=== PATIENT | female | born 1925 | race Caucasian/White ===

== ENCOUNTER 2017-02-19 17:31 | Inpatient (IN) | payer MEDICARE ==
--- NOTE | ~2017-02-19 | CN ---
Consultation Report [facility] [address] [place]. [address] NAME: KRISTIE BROOKS : [birth year] STATUS : ADM IN PAT#: [id number] AGE: 89 ADM/REG DATE : 02/20/17 MR#: [id number] REPORT SERV DATE: 02/24/17 DICTATED BY: FRANCHESKA SMITH DATE: 02/20/17 REPORT STATUS : Draft TRANSCRIBED BY: MODL DATE: 02/20/17 GI CONSULTATION DATE OF CONSULTATION: 02/20/2017 REASON FOR CONSULTATION: Evaluation and management of dysphagia, odynophagia. HISTORY OF PRESENT ILLNESS: Ms. Brooks is an 89-year-old female patient, who is known to Dr. Bradford Haider in the outpatient setting, who presented on 02/19/2017 with a chief complaint of progressive oropharyngeal dysphagia with odynophagia. She has a history, per discussion with her son, several months of dysphagia on and off that has progressively gotten worse especially in the last three to four days. He states that it has become so severe that it has debilitated her. She could not even swallow water on the day prior to admission. She tells me that she feels like she has to work "extra hard" to propel food down her esophagus. She points to her mid trachea, stating that it get stuck. She has some reflux, but she has not had nausea or vomiting. They were unsure if she has lost any weight. She complained of abdominal pain on admission, which she denies to me now. She has had a CT of the chest, abdomen, and pelvis, really only showed a large hiatal hernia, which has been seen on previous exams. The patient has a history of Plavix use, but has not taken many of her medications in the last few days. Her last dose was on the . I have discussed with the son. I have also discussed with the patient. We will plan on upper endoscopy tomorrow. The risks, the benefits, alternatives, and complications were detailed for them to include, but not limited to risk of bleeding, perforation, infection, reaction to medication, as well as cardiac and pulmonary side effects. Per discussion with the son, I did detail all the risks for him. He states that he prefers them to proceed with endoscopy as he needs to find out if this is something physical that truly is causing her difficulty swallowing or if it is something related to her dementia. PAST MEDICAL HISTORY: Positive for hiatal hernia; diverticulosis with history of diverticulitis, requiring partial colectomy; recurrent UTI; dementia; TIA; elevated cholesterol; glaucoma. SURGERIES: Appendectomy, partial colectomy, tubal ligation, cholecystectomy, left breast lumpectomy, T12 kyphoplasty. SOCIAL HISTORY: No alcohol, tobacco, or illicit drug use. She is and lives independently with her son. FAMILY HISTORY: Noncontributory from a GI standpoint. ALLERGIES: NO KNOWN ALLERGIES. HOME MEDICATIONS: Lipitor, vitamin D3, Plavix, Flonase, Advil, Claritin, Namenda, MiraLAX, Exelon, Ultracet, Bactrim, Travatan, fiber powder, [id number] probiotic. Consultation Report [place] [id number] [facility] [place]. [address] NAME: KRISTIE BROOKS : [birth year] STATUS : ADM IN [facility]#: [id number] AGE: 89 ADM/REG DATE : 02/20/17 MR#: [id number] REPORT SERV DATE: 02/24/17 DICTATED BY: FRANCHESKA SMITH DATE: 02/20/17 REPORT STATUS : Draft TRANSCRIBED BY: DEBBIE DATE: 02/20/17 REVIEW OF SYSTEMS: Somewhat limited. However, the patient denies any fever or chills. She has had some reflux, but no nausea. She has had no dysuria. She has chronic abdominal pain. She has had dysphagia and odynophagia. No cough. No rhinorrhea. PERTINENT LABORATORY DATA: Sodium 142, potassium 4.2, BUN 23, creatinine 1.33. White count 8.2, hemoglobin 13.5, hematocrit 40.6, platelet count 252. INR of 1. TSH 3.340. PHYSICAL EXAMINATION: VITAL SIGNS: Temperature 97.5, pulse 56, respirations 18, blood pressure 134/63. NEURO: An elderly, female, resting in bed, who awakens to name. She is oriented to self. She knows she is at the hospital. GENERAL: She is cooperative. She is in no acute distress. HEAD, EARS, EYES, NOSE, AND THROAT: Anicteric. Pupils are equal, round, reactive to light and accommodation. Normocephalic and atraumatic. NECK: No JVD. No palpable nodes. Supple. LUNGS: Diminished anteriorly with normal respiratory effort exhibited. Equal expansion. CARDIOVASCULAR SYSTEM: Regular rate and rhythm. ABDOMEN: Soft, nondistended, nontender with active bowel sounds. EXTREMITIES: No edema. Normal distal pulses. SKIN: Warm, dry, and intact. ASSESSMENT AND PLAN: 1. Differential diagnosis includes esophageal spasms, hiatal hernia, esophageal stricture. 2. Oropharyngeal dysphagia/odynophagia. 3. Abdominal pain, acute on chronic, with a negative CT scan. 4. Acute kidney injury. 5. History of transient ischemic attack, previously on Plavix, last dose on the 02/17/2017. PLAN: 1. Liquid diet. 2. N.p.o. after midnight. 3. Hold Lovenox. 4. EGD in the morning with Dr. Larson with possible dilation. 5. Morning labs. We will follow. UMANG/DEBBIE MIRTA Barragan Consultation Report [address] [place]. [address] NAME: KRISTIE BROOKS : [birth year] STATUS : ADM IN PAT#: [id number] AGE: 89 ADM/REG DATE : 02/20/17 MR#: [id number] REPORT SERV DATE: 02/24/17 DICTATED BY: FRANCHESKA SMITH DATE: 02/20/17 REPORT STATUS : Draft TRANSCRIBED BY: DEBBIE DATE: 02/20/17 / [id number] CC: Tk Lopez DO
--- NOTE | ~2017-02-19 | EGD ---
EGD REPORT [facility] [address] [place] [address] NAME: KECIA BROOKS : [birth year] STATUS : ADM Bhanu PAT#: [id number] AGE: 89 ADM/REG DATE : 02/19/17 MR#: [id number] REPORT SERV DATE: 02/21/17 DICTATED BY: TOM REAGAN DATE: 02/21/17 REPORT STATUS : Draft [facility]ANSCRIBED BY: [facility] DATE: 02/21/17 Endoscopy Center Patient Name: Kecia Brooks Date of : 1925 Attending MD: TOM REAGAN MD Procedure Date No Time: 02/21/2017 Procedure: Upper GI endoscopy Indications: Dysphagia Medicines: Monitored Anesthesia Care Complications: No immediate complications. Estimated blood loss: Minimal. Procedure: After obtaining informed consent, the endoscope was passed under direct vision. Throughout the procedure, the patient's blood pressure, pulse, and oxygen saturations were monitored continuously. The GIF [id number] was introduced through the mouth, and advanced to the second part of duodenum. The upper GI endoscopy was accomplished without difficulty. The patient tolerated the procedure well. Findings: The examined esophagus was grossly tortuous. No strictures, stenosis or esophagitis were seen. A guidewire was placed and the scope was withdrawn. Empiric dilation was performed with a Savary dilator with mild resistance at 36 Fr, mild resistance at 39 Fr and mild resistance at 42 Fr. Estimated blood loss was minimal. Many non-bleeding cratered gastric ulcers with no stigmata of bleeding were found in the gastric antrum. The largest lesion was 7 mm in largest dimension. Biopsies were taken with a cold forceps for Helicobacter pylori testing. Estimated blood loss was minimal. Patchy mild inflammation characterized by erosions and erythema was found in the duodenal bulb. A medium-sized hiatus hernia was present. Impression: - Tortuous esophagus. Dilated to 42 Fr. - Gastric ulcers with clean base. Biopsied. - Duodenitis. - Hiatus hernia. Recommendation: - Return patient to [facility] for ongoing care. - Await pathology results. - Use Protonix (pantoprazole) 40 mg PO BID for 8 weeks. - Observe patient's clinical course following today's procedure with therapeutic intervention. - If persistent dysphagia, would consider Speech and EGD REPORT [address] [place]. [address] NAME: KECIA BROOKS : [birth year] STATUS : ADM Bhanu PAT#: [id number] AGE: 89 ADM/REG DATE : 02/19/17 MR#: [id number] REPORT SERV DATE: 02/21/17 DICTATED BY: TOM REAGAN DATE: 02/21/17 REPORT STATUS : Draft TRANSCRIBED BY: [employer] DATE: 02/21/17 swallow evaluation +/- motility testing as an outpatient. Procedure Code(s): --- Professional --- 53799, Esophagogastroduodenoscopy, flexible, transoral; with insertion of guide wire followed by passage of dilator(s) through esophagus over guide wire 25581, Esophagogastroduodenoscopy, flexible, transoral; with biopsy, single or multiple Diagnosis Code(s): --- Professional --- Q39.9, Congenital malformation of esophagus, unspecified K25.9, Gastric ulcer, unspecified as acute or chronic, without hemorrhage or perforation K29.80, Duodenitis without bleeding K44.9, Diaphragmatic hernia without obstruction or gangrene R13.10, Dysphagia, unspecified CPT copyright 2013 [employer]. All rights reserved. The codes documented in this report are preliminary and upon ramp jockey review may be revised to meet current compliance requirements. Tom Reagan MD TOM REAGAN MD 02/21/2017 8:17 AM This report has been signed electronically. Number of Addenda: 0 Note Initiated On: 02/21/2017 7:35 AM Scope Withdrawal Time 0 hours 0 minutes 0 seconds [id number] [id number]
--- NOTE | ~2017-02-19 | DS ---
Discharge Summary [facility] [address] [facility] [place]. [address] NAME: KRISTIE MORAN : [birth year] STATUS : DIS IN PAT#: [id number] AGE: 89 ADM/REG DATE : 02/20/17 MR#: [id number] REPORT SERV DATE: 02/27/17 DICTATED BY: JA PRIDE DATE: 02/25/17 REPORT STATUS : Draft TRANSCRIBED BY: MODL DATE: 02/25/17 ADMISSION DATE: 02/20/2017 DISCHARGE DATE: 02/25/2017 DISCHARGE DIAGNOSES: 1. Severe dysphagia with odynophagia. 2. Gastric ulcer. 3. Acute kidney injury, now resolved. 4. Abdominal pain, most likely due to gastric ulcer. 5. Advanced dementia. 6. Failure to thrive. 7. Severe hiatal hernia. 8. History of transient ischemic attack. CONSULTANTS DURING THIS HOSPITALIZATION: Dr. Tom Larson of Gastroenterology. INVASIVE PROCEDURES DONE DURING THIS HOSPITALIZATION: EGD showing a tortuous esophagus without strictures or stenosis dilated to 42-Argentine empirically, gastric ulcers and hiatal hernia noted. Swallow eval, normal swallowing function. BRIEF HISTORY OF PRESENT ILLNESS: The patient is an 89-year-old female, presented with difficulty swallowing to the point where she would not swallow anything at all and became very dehydrated, so she was admitted. For detailed history and physical exam, please see note dictated by Dr. Gen Crowder on 02/19/2017. HOSPITAL COURSE: After being admitted to the hospital, this patient was given reasonable pain control. She had significant dementia. Dr. Larson saw the patient in consultation from a GI standpoint, performed the EGD, as noted above. We could not find a clear cause for her dysphagia, and I think it may be partly related to her dementia as well as severe hiatal hernia. At that time, I approached the family about the possibility of a feeding tube. Family does not want feeding tube and their aim and goal is more comfort than active treatment. At that time, I suggested hospice. Family was agreeable to that. Hospice has met with the patient and the family, and the patient will be transferred to a halfway facility under the care of hospice. DISCHARGE DISPOSITION: To the halfway facility. DISCHARGE ACTIVITY: Per facility. DISCHARGE DIET: As tolerated. DISCHARGE MEDICATIONS: Will be deferred to hospice. DISCHARGE FOLLOWUP: Will be done by hospice as well. More than 30 minutes spent planning this patient's discharge, discussing hospice care and Discharge Summary [place] [address] [place]. [address] NAME: KRISTIE MORAN : [birth year] STATUS : DIS IN PAT#: [id number] AGE: 89 ADM/REG DATE : 02/20/17 MR#: [id number] REPORT SERV DATE: 02/27/17 DICTATED BY: JA PRIDE DATE: 02/25/17 REPORT STATUS : Draft TRANSCRIBED BY: DEBBIE DATE: 02/25/17 terminal illness with the family at the bedside, and documenting this discharge. DICTATED BY: Tk Lopez/DEBBIE Ja Pride M.D. / [id number] CC: Tk Lopez DO
--- NOTE | ~2017-02-19 | HP ---
History And Physical [address] [address] NAME: KRISTIE MORAN : [birth year] STATUS : ADM Bhanu PAT#: [id number] AGE: 89 ADM/REG DATE : 02/19/17 MR#: [id number] REPORT SERV DATE: 02/20/17 DICTATED BY: AL ENAMORADO DATE: 02/19/17 REPORT STATUS : Draft TRANSCRIBED BY: MODL DATE: 02/19/17 DATE OF ADMISSION: 02/19/2017 CHIEF COMPLAINT: An 89-year-old female, presenting with difficulty swallowing to the point where she will not swallow anything at all now. HISTORY OF PRESENT ILLNESS: The patient's history was obtained through careful interview with the patient and son coupled with review of [facility] and [facility] medical records. The patient has had symptoms of difficulty swallowing for several months now on and off. Over the last three days, it has become so severe that by the day of admission, she will not swallow anything at all. She also describes painful swallowing felt in her throat as if something is getting stuck, an 8 to 9/10 severity. She won't even swallow water now, and today has had really essentially no food or liquid. She describes headache recently in her forehead radiating to her temples about a 3/10 severity. She has had no nausea, but has some reflux symptoms. She has "episodes" where she arrives in pain and seems a bit short of breath. There may be some slight aspiration or cough that is occurring? No change in bowel or bladder habit. No abdominal pain. REVIEW OF SYSTEMS: Otherwise, a 14-point review of systems was obtained and was negative. PAST MEDICAL HISTORY: 1. Hiatal hernia seen by Dr. Haider. 2. Diverticulosis diverticulitis with partial colectomy. 3. Urinary tract infection. 4. Dementia. 5. Transient ischemic attack. 6. Elevated cholesterol. 7. Glaucoma. 8. No cardiac disease. PAST SURGICAL HISTORY: 1. Appendectomy. 2. Cholecystectomy. 3. Partial colectomy. 4. Tubal ligation. 5. Left breast lumpectomy. 6. T12 kyphoplasty. History And Physical [address] [address] NAME: KRISTIE MORAN : [birth year] STATUS : ADM Bhanu PAT#: [id number] AGE: 89 ADM/REG DATE : 02/19/17 MR#: [id number] REPORT SERV DATE: 02/20/17 DICTATED BY: AL ENAMORADO DATE: 02/19/17 REPORT STATUS : Draft TRANSCRIBED BY: DEBBIE DATE: 02/19/17 ALLERGIES: NO KNOWN DRUG ALLERGIES. SOCIAL HISTORY: No tobacco abuse. No alcohol abuse. Became a in 2004, lives with her son now on [place], [place]. FAMILY HISTORY: Son of heart disease. Daughter of cancer. CURRENT MEDICATIONS: 1. Lipitor 40 mg p.o. daily. 2. Vitamin D. 3. Plavix 75 mg daily. 4. Flonase. 5. Advil p.r.n. 6. Claritin 10 mg as needed. 7. Namenda 10 mg p.o. b.i.d. 8. MiraLAX packet daily. 9. Exelon patch. 10.Tramadol p.r.n. 11.Fiber probiotics. PHYSICAL EXAMINATION: VITAL SIGNS: Temperature 98.3, pulse 79, blood pressure 125/60, respiratory rate 16, and O2 saturation 97% on room air. GENERAL: A pleasant, cooperative female, in no evidence of distress, but seems uncomfortable. HEENT: Pupils equal, round, and reactive to light. No conjunctival pallor. No scleral icterus. Nares are patent. Oropharynx is clear of obstruction. Dry mucous membranes. NECK: Trachea midline. No thyromegaly. LYMPH: No cervical lymphadenopathy. No supraclavicular lymphadenopathy. RESPIRATORY: Clear to auscultation at bases. No wheezes, rales, or rhonchi. Normal respiratory effort. CARDIOVASCULAR: Regular rate and rhythm. No murmurs, rubs, or gallops. No extremity edema is appreciated. ABDOMEN: Soft, nontender, and nondistended. Normal bowel sounds auscultated throughout. No hepatosplenomegaly. DERMATOLOGICAL: Warm and dry extremities. No pallor. No cyanosis. PSYCHIATRIC: A flat affect. Irritable mood. She is alert and oriented x3. LABORATORY DATA: White blood cell count 9.3, hemoglobin 13.9, hematocrit 41, and platelets 274. Sodium 139, potassium 4.3, chloride 109, bicarb 24, BUN 22, creatinine 1.29, and glucose 110. Brain natriuretic peptide 26. Troponin 0.05. INR 1.0. STUDIES: History And Physical [address] [address] NAME: KRISTIE MORAN : [birth year] STATUS : ADM Bhanu PAT#: [id number] AGE: 89 ADM/REG DATE : 02/19/17 MR#: [id number] REPORT SERV DATE: 02/20/17 DICTATED BY: AL ENAMORADO DATE: 02/19/17 REPORT STATUS : Draft TRANSCRIBED BY: MODL DATE: 02/19/17 1. Chest x-ray by my own evaluation shows no acute cardiopulmonary process. 2. EKG by my own evaluation shows sinus rhythm, no major abnormalities. 3. CT scan of the brain without contrast shows no acute intracranial process. ASSESSMENT AND PLAN: 1. Severe odynophagia and dysphagia progressive over about three months. The patient states that she would not tolerate a barium swallow. We will consult Dr. Haider, fast food crew member, for possible endoscopy. Place on IV proton pump inhibitor. 2. Abdominal pain evaluation. Check CT scan of the abdomen and pelvis. 3. Acute kidney injury. Place on IV fluids. KPL/MODL Al Enamorado M.D. / [id number] CC: Tk Hanley DO
[~2017-02-19 17:31] MED LIST: ARICEPT5 PO; ASAB PO; CHOLESTEROL MED PO; D 5000 PO; EXELON4.6T TOP; FOSAMAX70 MG PO; GENPRIL200 MG PO; LIDODERM T; LIPITOR; LIPITOR40 PO; MAXIMUM D3 PO; NAMENDA10 MG PO; PLAVIX; PLAVIX PO; PRILOSEC OTC20 MG PO; PROBIOTIC PO; PROTONIX PO; TRAVATAN OPH; TRAVATAN Z0.004 % OPH; VYTORIN 10/20 T1 TAB PO; ZOCOR40 PO
[2017-02-19 18:04] LABS: BASOPHILS 0.3 %; BASOPHILS ABSOLUTE 0.03 10/3/uL (0.0-0.16); EOSINOPHILS ABSOLUTE 0.09 10/3/uL (0.0-0.53); HEMOGLOBIN 13.9 g/dL (12.0-16.0); IMMATURE GRANULOCYTES 0.3 %; IMMATURE GRANULOCYTES ABSOLUTE 0.03 10/3/uL (0.0-0.11); LYMPHOCYTES 22.2 %; LYMPHOCYTES ABSOLUTE 2.07 10/3/uL (0.67-4.30); MEAN CORPUS HGB CONC 33.9 g/dL (32.0-36.0); MEAN CORPUSCULAR HEMOGLOB 31.1 pg (26.0-34.0); MEAN CORPUSCULAR VOLUME 91.7 fL (80-100); MEAN PLATELET VOLUME 9.6 fL (9.2-13.0); MONOCYTES 6.9 %; MONOCYTES ABSOLUTE 0.64 10/3/uL (0.21-1.20); NEUTROPHILS 69.3 %; NEUTROPHILS ABSOLUTE 6.46 10/3/uL (2.02-8.40); PLATELET COUNT 275 10/3/uL (150-400); RBC DISTRIBUTION WIDTH 13.3 % (12.0-16.0); RED CELL COUNT 4.47 10/6/uL (4.0-5.6)
[2017-02-19 18:06] LABS: ER CBC TAT 0 Hrs 07 Mins; MANUAL DIFF NO %; WHITE BLOOD CELLS 9.3 10/3/uL (4.5-10.5)
[2017-02-19 18:12] LABS: PROTIME (NOT ORD) 13.5 SEC (12.0-14.5)
[2017-02-19 18:22] LABS: CALCIUM, SERUM 9.5 MG/DL (8.5-10.4); CHLORIDE, SERUM 109 MMOL/L (96-112); CO2 (CARBON DIOXIDE) 24 MMOL/L (24-34); CREATININE 1.29 MG/DL (0.55-1.02); GFR AFRICAN AMERICAN 43 ML/MIN (>=60); GFR NON AFRICAN AMERICAN 37 ML/MIN (>=60); GLUCOSE, SERUM 110 MG/DL (60-99); POTASSIUM, SERUM 4.3 MMOL/L (3.5-5.3); SODIUM, SERUM 139 MMOL/L (135-148)
[2017-02-19 18:24] LABS: BUN (BLOOD UREA NITROGEN) 22 MG/DL (6-23)
[2017-02-19 18:25] LABS: CHEST PAIN PROFILE TAT 0 Hrs 26 Mins; TROPONIN I 0.05 NG/ML (<0.05)
[2017-02-19] MEDS ORDERED: BACDS PO (20:34)
[2017-02-19] MEDS ORDERED: LIPITOR40 PO (20:35)
[2017-02-19] MEDS ORDERED: PLAVIX PO (20:35)
[2017-02-19] MEDS ORDERED: NAMENDA10 MG PO (20:36)
[2017-02-19] MEDS ORDERED: EXELON4.6T TOP (20:39)
[2017-02-19] MEDS ORDERED: TRAVATAN Z 0.004% OPH (20:39)
[2017-02-19] MEDS ORDERED: ULTRACET PO (20:40)
[2017-02-19] MEDS ORDERED: MIRALAX POWDER1 PKT PO (20:42)
[2017-02-19] MEDS ORDERED: FIBER PO (20:43)
[2017-02-19] MEDS ORDERED: VITAMIN D31000 UNIT PO (20:44)
[2017-02-19] MEDS ORDERED: PROBIOTIC PO (20:45)
[2017-02-19] MEDS ORDERED: ADVIL PO (20:45)
[2017-02-19] MEDS ORDERED: CLARIT10 PO (20:46)
[2017-02-19] MEDS ORDERED: FLONASE NAS (20:47)
[2017-02-20 03:14] LABS: BASOPHILS 0.4 %; BASOPHILS ABSOLUTE 0.03 10/3/uL (0.0-0.16); EOSINOPHILS 1.7 %; EOSINOPHILS ABSOLUTE 0.14 10/3/uL (0.0-0.53); HEMATOCRIT 40.6 % (36.0-48.0); HEMOGLOBIN 13.5 g/dL (12.0-16.0); IMMATURE GRANULOCYTES 0.2 %; IMMATURE GRANULOCYTES ABSOLUTE 0.02 10/3/uL (0.0-0.11); LYMPHOCYTES 36.1 %; LYMPHOCYTES ABSOLUTE 2.97 10/3/uL (0.67-4.30); MEAN CORPUS HGB CONC 33.3 g/dL (32.0-36.0); MEAN CORPUSCULAR HEMOGLOB 30.4 pg (26.0-34.0); MEAN CORPUSCULAR VOLUME 91.4 fL (80-100); MEAN PLATELET VOLUME 9.7 fL (9.2-13.0); MONOCYTES 8.3 %; MONOCYTES ABSOLUTE 0.68 10/3/uL (0.21-1.20); NEUTROPHILS 53.3 %; NEUTROPHILS ABSOLUTE 4.38 10/3/uL (2.02-8.40); PLATELET COUNT 252 10/3/uL (150-400); RBC DISTRIBUTION WIDTH 13.3 % (12.0-16.0); RED CELL COUNT 4.44 10/6/uL (4.0-5.6); WHITE BLOOD CELLS 8.2 10/3/uL (4.5-10.5)
[2017-02-20 03:15] LABS: MANUAL DIFF NO %
[2017-02-20 03:24] LABS: PARTIAL THROMBO TIME 31.7 SEC (22.5-37.2); PROTIME (NOT ORD) 13.4 SEC (12.0-14.5)
[2017-02-20 03:48] LABS: ALBUMIN 3.6 G/DL (3.5-5.0); ALKALINE PHOSPHATASE 107 U/L (45-117); BUN (BLOOD UREA NITROGEN) 23 MG/DL (6-23); CALCIUM, SERUM 9.2 MG/DL (8.5-10.4); CHLORIDE, SERUM 109 MMOL/L (96-112); CO2 (CARBON DIOXIDE) 25 MMOL/L (24-34); CREATININE 1.33 MG/DL (0.55-1.02); GFR AFRICAN AMERICAN 41 ML/MIN (>=60); GFR NON AFRICAN AMERICAN 35 ML/MIN (>=60); GLOBULIN 3.5 G/DL (2.5-4.1); POTASSIUM, SERUM 4.2 MMOL/L (3.5-5.3); SGOT(AST) 37 U/L (5-40); SGPT(ALT) 24 U/L (5-65); SODIUM, SERUM 142 MMOL/L (135-148); TOTAL BILIRUBIN 0.4 MG/DL (0-1.2); TOTAL PROTEIN 7.1 G/DL (6.0-8.5)
[2017-02-20 03:49] LABS: GLUCOSE, SERUM 81 MG/DL (60-99)
[2017-02-20 03:50] LABS: TROPONIN I 0.05 NG/ML (<0.05)
[2017-02-20 05:51] LABS: SED RATE 13 MM/HR (0-20)
[2017-02-21 04:00] LABS: BASOPHILS 0.6 %; BASOPHILS ABSOLUTE 0.04 10/3/uL (0.0-0.16); EOSINOPHILS 1.9 %; EOSINOPHILS ABSOLUTE 0.12 10/3/uL (0.0-0.53); HEMATOCRIT 35.4 % (36.0-48.0); HEMOGLOBIN 11.9 g/dL (12.0-16.0); IMMATURE GRANULOCYTES 0.5 %; IMMATURE GRANULOCYTES ABSOLUTE 0.03 10/3/uL (0.0-0.11); LYMPHOCYTES ABSOLUTE 1.81 10/3/uL (0.67-4.30); MANUAL DIFF NO %; MEAN CORPUS HGB CONC 33.6 g/dL (32.0-36.0); MEAN CORPUSCULAR HEMOGLOB 31.4 pg (26.0-34.0); MEAN CORPUSCULAR VOLUME 93.4 fL (80-100); MEAN PLATELET VOLUME 9.4 fL (9.2-13.0); MONOCYTES 7.6 %; MONOCYTES ABSOLUTE 0.49 10/3/uL (0.21-1.20); NEUTROPHILS 61.4 %; NEUTROPHILS ABSOLUTE 3.98 10/3/uL (2.02-8.40); PLATELET COUNT 217 10/3/uL (150-400); RBC DISTRIBUTION WIDTH 13.1 % (12.0-16.0); RED CELL COUNT 3.79 10/6/uL (4.0-5.6); WHITE BLOOD CELLS 6.5 10/3/uL (4.5-10.5)
[2017-02-21 04:07] LABS: INTERNATIONAL NORMAL RATI 1.1 UNITS (-); PROTIME (NOT ORD) 14.5 SEC (12.0-14.5)
[2017-02-21 04:22] LABS: BUN (BLOOD UREA NITROGEN) 14 MG/DL (6-23); CALCIUM, SERUM 8.2 MG/DL (8.5-10.4); CHLORIDE, SERUM 114 MMOL/L (96-112); CO2 (CARBON DIOXIDE) 25 MMOL/L (24-34); CREATININE 0.92 MG/DL (0.55-1.02); GFR AFRICAN AMERICAN 64 ML/MIN (>=60); GFR NON AFRICAN AMERICAN 55 ML/MIN (>=60); GLUCOSE, SERUM 70 MG/DL (60-99); POTASSIUM, SERUM 3.9 MMOL/L (3.5-5.3); SODIUM, SERUM 147 MMOL/L (135-148); ULTRASENSITIVE TSH 0.666 MCIU/ML (0.358-3.740)
[2017-02-22 07:14] LABS: BASOPHILS 0.3 %; BASOPHILS ABSOLUTE 0.02 10/3/uL (0.0-0.16); EOSINOPHILS 2.4 %; EOSINOPHILS ABSOLUTE 0.15 10/3/uL (0.0-0.53); HEMATOCRIT 37.9 % (36.0-48.0); HEMOGLOBIN 12.6 g/dL (12.0-16.0); IMMATURE GRANULOCYTES 0.2 %; IMMATURE GRANULOCYTES ABSOLUTE 0.01 10/3/uL (0.0-0.11); LYMPHOCYTES 37.9 %; LYMPHOCYTES ABSOLUTE 2.41 10/3/uL (0.67-4.30); MEAN CORPUS HGB CONC 33.2 g/dL (32.0-36.0); MEAN CORPUSCULAR HEMOGLOB 30.7 pg (26.0-34.0); MEAN CORPUSCULAR VOLUME 92.4 fL (80-100); MEAN PLATELET VOLUME 9.7 fL (9.2-13.0); MONOCYTES 8.2 %; MONOCYTES ABSOLUTE 0.52 10/3/uL (0.21-1.20); NEUTROPHILS ABSOLUTE 3.25 10/3/uL (2.02-8.40); PLATELET COUNT 227 10/3/uL (150-400); RBC DISTRIBUTION WIDTH 13.3 % (12.0-16.0); WHITE BLOOD CELLS 6.4 10/3/uL (4.5-10.5)
[2017-02-22 07:19] LABS: MANUAL DIFF NO %
[2017-02-22 07:28] LABS: ALBUMIN 3.3 G/DL (3.5-5.0); CHLORIDE, SERUM 112 MMOL/L (96-112); CO2 (CARBON DIOXIDE) 23 MMOL/L (24-34); GFR AFRICAN AMERICAN 66 ML/MIN (>=60); GFR NON AFRICAN AMERICAN 57 ML/MIN (>=60); GLUCOSE, SERUM 79 MG/DL (60-99); POTASSIUM, SERUM 3.9 MMOL/L (3.5-5.3); SODIUM, SERUM 142 MMOL/L (135-148)
[2017-02-22 07:29] LABS: BUN (BLOOD UREA NITROGEN) 9 MG/DL (6-23); CALCIUM, SERUM 9.3 MG/DL (8.5-10.4); PHOSPHORUS, SERUM 2.4 MG/DL (2.5-4.5)
== END 2017-02-25 17:33 | disposition hospice, inpatient (51) | DRG 384 ==
LOC: ER 17:31 → CDU1 21:56 → 6NO 02-21 14:06
PROVIDERS: Emergency Medicine; Internal Medicine; Internal Medicine Gastroenterology; Nurse Practitioner Family
PROC: 0DB68ZX Excision of Stomach, Via Natural or Artificial Opening Endoscopic, Diagnostic (ICD-10-PCS; 2017-02-21)
PROC: 0D758ZZ Dilation of Esophagus, Via Natural or Artificial Opening Endoscopic (ICD-10-PCS; principal; 2017-02-21 08:30)
DX: K25.9 Gastric ulcer, unspecified as acute or chronic, without hemorrhage or perforation (principal); N17.9 Acute kidney failure, unspecified; R13.10 Dysphagia, unspecified; Q39.9 Congenital malformation of esophagus, unspecified; K29.80 Duodenitis without bleeding; K44.9 Diaphragmatic hernia without obstruction or gangrene; H40.9 Unspecified glaucoma; K21.9 Gastro-esophageal reflux disease without esophagitis; K57.90 Diverticulosis of intestine, part unspecified, without perforation or abscess without bleeding; R62.7 Adult failure to thrive; Z86.73 Personal history of transient ischemic attack (TIA), and cerebral infarction without residual deficits; Z87.440 Personal history of urinary (tract) infections; Z90.49 Acquired absence of other specified parts of digestive tract
CPT/HCPCS: 70450; 71020; 71250; 74176; 74230; 80048; 80053; 80069; 83735; 83880; 84443; 84484; 85025; 85610; 85652; 85730; 88305; 88342; 92611-GN; 93005; 97161-GP; 99285; A9270-GY; C9113; G8978-CK-GP; G8979-CJ-GP; G8996-CJ-GN; G8997-CJ-GN; G8998-CJ-GN; J2800